=== PATIENT | male | born 2000 | race Caucasian/White ===

== ENCOUNTER → 2023-04-11 11:08 | Outpatient (CLI) | payer OTHER, SELFPAY ==
--- NOTE | ~2023-04-11 | US_ITS ---
US scrotum doppler INDICATION: Bilateral testicular pain TECHNIQUE: Testicular sonogram utilizing grayscale and color Doppler FINDINGS: The testes are normal in size and appearance. No focal lesions are seen. There are bilater al testicular calcifications, consistent with microlithiasis. The right testes measures 4 x 2 x 2.8 c m centimeters, and the left testis measures 4.2 x 2 x 2.5 cm cm. There is normal vascular flow to bot h testes. The right and left epididymides appear normal. There is a left varicocele. IMPRESSION: 1. Left-sided varicocele. 2: Testicular microlithiasis. Reviewed, dictated and finalized at location B. [facility]
== END ==
PROVIDERS: PCP Family Medicine; Visit Provider Family Medicine
DX: N50.819 Testicular pain, unspecified (principal); I86.1 Scrotal varices
CPT/HCPCS: 76870; 93976

== ENCOUNTER 2025-02-17 15:26 | Outpatient (CLI) | payer OTHER, SELFPAY ==
--- NOTE | ~2025-02-17 | XR_ITS ---
XR lumbar spine 2-3V Indication: Spondylolisthesis, lumbosacral region Comparison: None Findings: No fracture identified, no subluxation flexion and extension. Minimal loss of disc at L4-5 and L5-S1. Soft tissues unremarkable Impression: No acute abnormality. Reviewed, dictated and finalized at location P. Impression: No acute abnormality.
== END 2025-02-17 15:27 | disposition home or self-care (01) ==
LOC: MICIMG 15:29
PROVIDERS: PCP Nurse Practitioner Family; Visit Provider Anesthesiology
DX: M43.17 Spondylolisthesis, lumbosacral region (principal)
CPT/HCPCS: 72100